=== PATIENT | male | born 1940 | race Caucasian/White ===

== ENCOUNTER 2016-10-03 16:54 | Emergency (ER) | payer MEDICARE, BC ==
[~2016-10-03] VITALS: Ht 167.6 cm; Wt 59.4 kg
[2016-10-03 16:55] VITALS: BP 148/86
[2016-10-03] MEDS ORDERED: TETANUS AND DIPHTHERIA TOX/PF 0.5 ML VIAL. VAX IM ONE (18:00)
[2016-10-03] MEDS ORDERED: LIDOCAINE 2% 20 ML VIAL. IJ ONE (18:30)
[2016-10-03] MEDS ORDERED: DIPHTH,PERTUSS(ACELL),TET TOX 0.5 ML DISP.SYRIN. VAX IM ONE (18:45)
[2016-10-03] MEDS ORDERED: LIDOCAINE/EPI/TETRACAINE TOPICAL GEL 3 ML. TP ONE (18:45)
[2016-10-03] MEDS ORDERED: CEPH-264 PO (19:52)
[2016-10-03] MEDS ORDERED: ACETAMINOPHEN 325 MG TABLET PO ONE (20:00)
[2016-10-03] MEDS ORDERED: CEPHALEXIN 500 MG CAPSULE PO ONE (20:00)
--- NOTE | 2016-10-03 20:06 | ED.ADGEN ---
Past History Past Medical History: No Pertinent History Past Surgical History: No Surgical History Alcohol Use: None Drug Use: None Adult General HPI HPI Patient is a 76-year-old man, who presents the emergency department with a complaint of hand pain and laceration. Patient states that he was moving equipment in his basement, when he caught his hand on the edge of a table and possibly part of a jigsaw. This occurred approximately an hour prior to arrival in the emergency department. Patient had significant bleeding, and place pressure on the wound immediately. Is not taking any medications prior to come to the ED. Denies any other injuries. His tetanus is not up-to-date. He does not take any anticoagulants. Review of Systems Review of Systems Constitutional: Denies fever or chills [] Eyes: Denies change in visual acuity, redness, or eye pain [] HENT: Denies nasal congestion or sore throat [] Respiratory: Denies cough or shortness of breath [] Cardiovascular: No additional information not addressed in HPI [] GI: Denies abdominal pain, nausea, vomiting, bloody stools or diarrhea [] : Denies dysuria or hematuria [] Musculoskeletal: Denies back pain or joint pain, pain in the left hand with laceration. Integument: Denies rash or skin lesions [] Current Medications Current Medications Current Medications Medications (Trade) Dose Ordered Sig/Zoie Start Time Stop Time Status Last Admin Dose Admin Acetaminophen (Tylenol) 650 mg 1X ONCE 10/03/16 20:00 10/03/16 20:01 Cephalexin HCl (Keflex) 500 mg 1X ONCE 10/03/16 20:00 10/03/16 20:01 Diphtheria/ Tetanus/Acell Pertussis (Boostrix) 0.5 ml ONCE ONCE 10/03/16 18:45 10/03/16 18:46 DC 10/03/16 18:31 0.5 ML Lidocaine HCl 20 ml 1X ONCE 10/03/16 18:30 10/03/16 18:31 DC 10/03/16 18:30 20 ML Lidocaine/ Epinephrine (Let Topical) 3 ml 1X ONCE 10/03/16 18:45 10/03/16 18:46 DC 10/03/16 18:39 3 ML Tetanus/ Diphtheria Toxoids Adsorbed (Tenivac Vial) 0.5 ml ONCE ONCE 10/03/16 18:00 10/03/16 18:13 DC Allergies Allergies Allergies Coded Allergies Type Severity Reaction Last Updated Verified No Known Drug Allergies 10/03/16 No Physical Exam Physical Exam Constitutional: Well developed, well nourished, no acute distress, non-toxic appearance. [] HENT: Normocephalic, atraumatic, bilateral external ears normal, oropharynx moist, no oral exudates, nose normal. [] Eyes: PERRLA, EOMI, conjunctiva normal, no discharge. [] Cardiovascular:Heart rate regular rhythm, no murmur, S1, S2, rubs or gallops. [] Lungs & Thorax: Bilateral breath sounds clear to auscultation, no wheezing, rhonchi, rales. No chest or crepitus or tenderness. [] Abdomen: Bowel sounds normal, soft, no tenderness, no masses, no pulsatile masses. [] Skin: Warm, dry, no erythema, no rash. [] Extremities: 4 cm slightly gaping laceration to the subcutaneous tissue between the second and third digit and across the dorsum of the left hand. Cardinal motions are intact, there is no extension beyond the superficial, fascia is intact. No cyanosis, no clubbing, ROM intact, no edema. [] Neurologic: Alert and oriented X 3, normal motor function, normal sensory function, no focal deficits noted. [] Psychologic: Affect normal, judgement normal, mood normal. [] Current Patient Data Vital Signs Vital Signs Date Time Temp Pulse Resp B/P (MAP) Pulse Ox O2 Delivery O2 Flow Rate FiO2 10/03/16 16:55 97.8 110 20 96 Room Air EKG EKG Not indicated. [] Radiology/Procedures Radiology/Procedures Hand x-ray: Left: Three-view: No bony abnormalities identified, small area of soft tissue swelling between the second and third digit on the dorsal aspect of the left hand, no foreign bodies or other abnormalities identified. As interpreted by me.] Course & Med Decision Making Course & Med Decision Making Pertinent Labs and Imaging studies reviewed. (See chart for details) Copious irrigation of the wound, superficial, with no involvement of the underlying fascia, with cardinal motions intact. A total of 11 simple sutures were applied using 5-0 Vicryl with hemostasis and good approximation established. Steri-Strips applied, bulky dressing applied, patient given clear and detailed return instructions. Tetanus was updated, patient also received several days worth of oral antibiotics due to the dirty condition of the wound upon arrival in the site of injury. Patient discharged home in stable condition with his son to follow-up in 7-10 days in the emergency department, and return immediately if any signs of infection develop. Final Impression Final Impression Laceration to the dorsal aspect left hand [] Problems: Dragon Disclaimer Dragon Disclaimer This electronic medical record was generated, in whole or in part, using a voice recognition dictation system. Laceration Repair Lac Repair Indication: 4 cm superficial laceration to the dorsal aspect left hand between digits 2 and 3. Procedure: The patient was placed in the appropriate position and anesthesia around the was applied using LET gel. The area was then copiously irrigated with sterile saline under pressure additionally cleaned with sterile . The laceration was a total of 4 mL's of 2% lidocaine was then injected with good anesthetic effect. Wound edges were approximated, and a total of 11 simple sutures using 5-0 Vicryl placed with hemostasis and good wound closure established. The wound area was then dressed with Steri-Strips and bulky dressing with sterile gauze. Total repaired wound length: 4 cm Other Items: [None The patient tolerated the procedure well Complications: [None]. Departure Disposition: 01 HOME, SELF-CARE Condition: IMPROVED BREANN MONAHAN DO October 03, 2016 20:06
--- NOTE | 2016-10-04 08:36 | RAD ---
Indication: Laceration. Technique: 3 views of the left hand are submitted for review. No comparison is available. Findings: There is no fracture or dislocation. There is no radiopaque foreign body. There are mild degenerative changes. Impression: Negative for fracture. Negative for radiopaque foreign body.
== END 2016-10-03 20:00 | disposition home or self-care (01) ==
LOC: ER 16:54
DX: S61.412A Laceration without foreign body of left hand, initial encounter (principal); W23.0XXA Caught, crushed, jammed, or pinched between moving objects, initial encounter; Y93.89 Activity, other specified; Y99.8 Other external cause status; Y92.89 Other specified places as the place of occurrence of the external cause
CPT/HCPCS: 12001; 73130; 90471; 90715; 99284-25; J2001

== ENCOUNTER 2021-08-15 13:49 | Emergency (ER) | payer BC, MEDICARE ==
[~2021-08-15] VITALS: Ht 167.6 cm; Wt 66.9 kg
[~2021-08-15 13:49] MED LIST: CEPH-264 PO
[2021-08-15] MEDS ORDERED: IOHEXOL 350 MG/ML 100 ML VIAL. ONE (14:01)
--- NOTE | 2021-08-15 14:14 | RAD ---
CT STROKE HEAD W/O History: Right arm weakness, numbness. Rule out stroke. Comparison: None. Technique: Noncontrast CT imaging was performed of the head. Findings: No intracranial hemorrhage. No mass effect. No hydrocephalus. No evidence of acute territorial infar ction. Moderate hypodensity the periventricular and deep white matter consistent with chronic microva scular ischemic changes. Imaged orbits are unremarkable. Imaged paranasal sinuses and mastoid air cells are clear. The scalp a nd calvarium are unremarkable. Impression: 1. No acute intracranial abnormality. Findings discussed with ALEJANDRO TIDWELL DO at 08/15/2021 203 PM. FOR INTERNAL CODING PURPOSES RESULT CODE: (C) ----- Exposure: One or more of the following individualized dose reduction techniques were utilized for thi s examination: 1. Automated exposure control 2. Adjustment of the mA and/or kV according to patient size 3. Use of iterative reconstruction technique. Electronically signed by: Uriel Armendariz MD (08/15/2021 2:11 PM) [id number]
[2021-08-15] MEDS ORDERED: ASPIRIN ENTERIC COATED 325 MG TABLET.DR. PO ONE (14:15)
[2021-08-15 14:22] LABS: BASO # 0.1 x10^3/uL (0.0-0.2); BASO % 2 % (0-3); EOS # 0.5 x10^3/uL (0.0-0.7); EOS % 5 % (0-3); HEMATOCRIT 46.7 % (39.0-53.0); HEMOGLOBIN 15.6 g/dL (13.0-17.5); LYMPH # 3.2 x10^3/uL (1.0-4.8); LYMPH % 33 % (24-48); MEAN CORPUSCULAR HEMOGLOBIN 30 pg (25-35); MEAN CORPUSCULAR HGB CONC 33 g/dL (31-37); MEAN CORPUSCULAR VOLUME 91 fL (79-100); MONO # 1.2 x10^3/uL (0.0-1.1); MONO % 13 % (0-9); NEUT # 4.5 x10^3uL (1.8-7.7); NEUT % 47 % (31-73); PLATELET COUNT 232 x10^3/uL (140-400); RED BLOOD COUNT 5.13 x10^6/uL (4.30-5.70); RED CELL DISTRIBUTION WIDTH 14.2 % (11.5-14.5); WHITE BLOOD COUNT 9.6 x10^3/uL (4.0-11.0)
--- NOTE | 2021-08-15 14:22 | PHYS DOC ---
Past History Past Medical History: No Pertinent History Past Surgical History: No Surgical History Smoking: Quit Greater Than 1 Year Alcohol Use: None Drug Use: None General Adult EDM: Chief Complaint: NEURO SYMPTOMS/DEFICITS HPI: HPI: Patient is a 81 yo male that presented to the ED for concerns of weakness of the right arm and leg that started around 1315 while sitting in the recliner. He promptly called EMS and he slid out of the chair on to the floor where EMS found him on arrival. Denies head trauma or LOC. He lives at home alone and hasn't seen a physician in 45 years. He stopped smoking last year. Doesn't take any medications. Reports the shaking of this right side started sometime during the ambulance ride. Reports that he's cold all of the time and keeps his thermostat at home at 80%. Reports some SOB. Denies chest pain, nausea, vomiting, fever, or changes in vision. Denies alcohol and recreational drug use. EMS activated CODE STROKE prior to arrival. Denies known sick contacts. Review of Systems: Review of Systems: Constitutional: Denies fever or chills HENT: Denies nasal congestion or sore throat Respiratory: Denies cough; reports shortness of breath Cardiovascular: Denies chest pain or palpitations GI: Denies abdominal pain, nausea, or vomiting : Denies dysuria or hematuria Musculoskeletal: Denies back pain or joint pain Integument: Denies rash or skin lesions Neurologic: Denies headache; reports right arm and leg weakness and numbness; reports right arm and leg contractions Complete systems were reviewed and found to be within normal limits, except as documented in this note. Current Medications: Current Meds: Current Medications Medications (Trade) Dose Ordered Sig/Zoie Start Time Stop Time Status Last Admin Dose Admin Aspirin (Aspirin Enteric Coated) 325 mg 1X ONCE 08/15/21 14:15 08/15/21 14:16 DC Iohexol (Omnipaque 350 Mg/ml) 100 ml STK-MED ONCE 08/15/21 14:01 08/15/21 14:01 DC Allergies: Allergies: Allergies Coded Allergies Type Severity Reaction Last Updated Verified No Known Drug Allergies 10/03/16 No Physical Exam: PE: Constitutional: Well developed, well nourished, no acute distress, non-toxic appearance HENT: Normocephalic, atraumatic Eyes: PERRL, EOMI, conjunctiva normal Neck: Normal range of motion, supple Lungs & Thorax: No respiratory distress, diffuse expiratory wheezes Abdomen: Soft, no tenderness Skin: Warm, dry, no erythema, no rash Back: No tenderness, no CVA tenderness Extremities: No edema, pulses equal bilaterally Neurologic: Alert and oriented X 3, right arm weakness 4/5 strength, right leg weakness 3/5 strength, decreased sensation on RUE and RLE compared to left side, right arm and leg focal seizure like activity noted Psychologic: Affect normal, judgment normal Current Patient Data: Labs: Laboratory Tests Test 08/15/21 14:01 Glucose (Fingerstick) 135 mg/dL (70-99) H EKG: EKG: @1418 Sinus tachycardia at 108bpm, NO ST elevation, QRS 76ms, QT/QTc 264/357ms Radiology/Procedures: Radiology/Procedures: PROCEDURE: CT CODE STROKE HEAD WO CT STROKE HEAD W/O History: Right arm weakness, numbness. Rule out stroke. Comparison: None. Technique: Noncontrast CT imaging was performed of the head. Findings: No intracranial hemorrhage. No mass effect. No hydrocephalus. No evidence of acute territorial infarction. Moderate hypodensity the periventricular and deep white matter consistent with chronic microvascular ischemic changes. Imaged orbits are unremarkable. Imaged paranasal sinuses and mastoid air cells are clear. The scalp and calvarium are unremarkable. Impression: 1. No acute intracranial abnormality. Findings discussed with ALEJANDRO TIDWELL DO at 08/15/2021 203 PM. FOR INTERNAL CODING PURPOSES RESULT CODE: (C) Exposure: One or more of the following individualized dose reduction techniques were utilized for this examination: 1. Automated exposure control 2. Adjustment of the mA and/or kV according to patient size 3. Use of iterative reconstruction technique. Electronically signed by: Uriel Armendariz MD (08/15/2021 2:11 PM) [id number] PROCEDURE: PORTABLE CHEST 1V XR CHEST 1V INDICATION: weakness COMPARISON STUDY: None. FINDINGS: Lungs: Normal lung volume. No pulmonary mass or consolidation. The tracheobronchial tree and hilar structures are normal. Pleura: No pleural effusion or pneumothorax. Heart and Mediastinum: The cardiomediastinal silhouette is normal. Tortuous athe rosclerotic aorta. IMPRESSION: No acute cardiopulmonary process. Electronically signed by: Anthony Rodriguez MD (08/15/2021 3:14 PM) [id number] PROCEDURE: CT ANGIOGRAPHY HEAD AND NECK CTA HEAD AND NECK W/WO CONTRAST History: Right arm weakness. Code stroke. Technique: After bolus of intravenous contrast, volumetric CT data acquisition was acquired of the head and neck. Multiplanar reconstruction images to include MIP and 3-D reconstruction images are submitted. Any determination of stenosis is based on NASCET criteria. Comparison: None Findings: Angiogram neck: Aortic arch: Normal caliber. Mild atherosclerotic calcification. 2 vessel morphology. Common carotid arteries: No stenosis, occlusion or dissection. Internal carotid arteries: No stenosis, occlusion or dissection. External carotid arteries: Patent Vertebral arteries: No stenosis, occlusion or dissection. Angiogram head: ICA: No stenosis, occlusion or aneurysm. MCA: No stenosis, occlusion or aneurysm. GERMAN: No stenosis, occlusion or aneurysm. EDGE PLUGGER: No stenosis, occlusion or aneurysm. Basilar artery: No stenosis, occlusion or aneurysm. Distal vertebral arteries: No stenosis, occlusion or aneurysm. Other: Imaged lung apices are unremarkable. Soft tissues appear normal. No pathologic osseous lesions. Multilevel degenerative changes in the spine. Right maxillary sinus opacification. Impression: 1. No large vessel occlusion. 2. No significant stenosis in the head and neck. 3. Right maxillary sinus disease. Findings discussed with emergency room staff on behalf of Dr. Tidwell who was involved in a procedure at 08/15/2021 4:15 PM. FOR INTERNAL CODING PURPOSES RESULT CODE: (C) Exposure: One or more of the following individualized dose reduction techniques were utilized for this examination: 1. Automated exposure control 2. Adjustment of the mA and/or kV according to patient size 3. Use of iterative reconstruction technique. Electronically signed by: Uriel Armendariz MD (08/15/2021 4:16 PM) [id number] Heart Score: C/O Chest Pain: N/A Course & Med Decision Making: Course & Med Decision Making Pertinent Labs and Imaging studies reviewed. (See chart for details) Elderly patient presents via EMS as a code stroke. Patient with right arm and leg weakness and numbness. Patient sent directly to CT imaging. CT head with out acute process. NIHSS obtained and 4. Patient subsequently started having progressive focal muscle contractions to arm and leg concerning for focal seizure-like activity. Ativan provided. Labs obtained and posted to chart. Lactic acid significantly elevated concerning that patient may have a seizure- like disorder. Cannot fully dissertation between seizure or stroke. A CT angio head and neck obtained. Prior to results discussed case with Dr. Herrera (neurologist) regarding administration of TPA. TPA had been ordered. Dr. Herrera recommended awaiting CTA head/neck report. CTA head/neck without acute large vessel occulsion. Dr. Herrera came to ED and evaluated patient. Recommendation to start TPA. TPA was administered prior to 4 hours reported last know well. Dr. Herrera recommended admission to ICU. Discussed case with Dr. Sky (hospitalist) and Tara RN (malt house kiln operator). Unfortunately no ICU bed capability. Patient therefore requiring transfer to higher level facility for admission for further evaluation and treatment. Discussed with Dr. Cruz (hospitalist) at [facility] who is in agreement with ICU admission. Discussed findings and plan with patient, who acknowledges understanding and agreement. [place] Disclaimer: [place] Disclaimer: This electronic medical record was generated, in whole or in part, using a voice recognition dictation system. Departure Departure: Impression: Primary Impression: Right sided weakness Additional Impressions: Focal seizures Right sided numbness Lactic acidosis Disposition: 02 SHORT TERM HOSPITAL ([facility]- Dr. Cruz (hospitalist) accepting) Condition: GUARDED Referrals: PCP,UNKNOWN (PCP) NIHSS - ED NIH Stroke Scale: NIH Stroke Scale Response (Comments) Value Level of Consciousness: 0 Alert/Responsive 0 LOC Questions: 0 Answers both correctly 0 LOC Commands: 0 Performs both tasks 0 Best Gaze: 0 Normal 0 Visual: 0 No visual loss 0 Facial Palsy: 0 Normal, symmetrical 0 Motor - Left Arm 0 No drift 0 Motor - Right Arm 1 Drifts but can hold 1 Motor - Left Leg 0 No drift 0 Motor: Right Leg 2 Some effort 2 Limb Ataxia: 0 Absent 0 Sensory: 1 Mid to moderate loss 1 Best Language: 0 Normal 0 Dysathria: 0 Normal 0 Extinction and Inattention: 0 Normal 0 Total 4 Critical Care Time Critical care time was 30 minutes which includes time at bedside, spent in discussion of patient's care with specialists and/or family members, with interpretation of laboratory and/or radiological studies and is exclusive of procedures. ALEJANDRO TIDWELL DO Aug 15, 2021 14:22
--- NOTE | 2021-08-15 14:25 | EKG ---
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
[2021-08-15 14:33] LABS: CALCIUM 8.9 mg/dL (8.5-10.1); GFR 71.4; POTASSIUM 3.9 mmol/L (3.5-5.1)
[2021-08-15] MEDS ORDERED: ALTEPLASE IV ONE (14:45)
[2021-08-15] MEDS ORDERED: IV NORMAL SALINE 100ML 100 ML IV ONE (14:45)
[2021-08-15] MEDS ORDERED: ALTEPLASE 6 MG IV ONE (14:45)
[2021-08-15 14:52] LABS: ALBUMIN 3.7 g/dL (3.4-5.0); ALBUMIN/GLOBULIN RATIO 1.1 (1.0-1.7); TOTAL BILIRUBIN 0.5 mg/dL (0.2-1.0)
[2021-08-15] MEDS ORDERED: IOHEXOL 350 MG/ML 100 ML VIAL. IV ONE (15:15)
--- NOTE | 2021-08-15 15:17 | RAD ---
XR CHEST 1V INDICATION: weakness COMPARISON STUDY: None. FINDINGS: Lungs: Normal lung volume. No pulmonary mass or consolidation. The tracheobronchial tree and hilar st ructures are normal. Pleura: No pleural effusion or pneumothorax. Heart and Mediastinum: The cardiomediastinal silhouette is normal. Tortuous atherosclerotic aorta. IMPRESSION: No acute cardiopulmonary process. Electronically signed by: Anthony Rodriguez MD (08/15/2021 3:14 PM) [id number]
[2021-08-15 16:13] LABS: CLARITY,URINE CLEAR
[2021-08-15 16:14] LABS: BACTERIA,URINE 0 /HPF (0-FEW); COLOR,URINE YELLOW; GLUCOSE,URINE NEG (NEG); NITRITE,URINE NEG (NEG); RBC,URINE OCC /HPF (0-2); UROBILINOGEN,URINE 0.2 mg/dL (0.2 mg/dL); WBC,URINE 0 /HPF (0-4)
--- NOTE | 2021-08-15 16:19 | RAD ---
CTA HEAD AND NECK W/WO CONTRAST History: Right arm weakness. Code stroke. Technique: After bolus of intravenous contrast, volumetric CT data acquisition was acquired of the he ad and neck. Multiplanar reconstruction images to include MIP and 3-D reconstruction images are submi tted. Any determination of stenosis is based on NASCET criteria. Comparison: None Findings: Angiogram neck: Aortic arch: Normal caliber. Mild atherosclerotic calcification. 2 vessel morphology. Common carotid arteries: No stenosis, occlusion or dissection. Internal carotid arteries: No stenosis, occlusion or dissection. External carotid arteries: Patent Vertebral arteries: No stenosis, occlusion or dissection. Angiogram head: ICA: No stenosis, occlusion or aneurysm. MCA: No stenosis, occlusion or aneurysm. GERMAN: No stenosis, occlusion or aneurysm. AUTOMOTIVE INSTRUCTOR: No stenosis, occlusion or aneurysm. Basilar artery: No stenosis, occlusion or aneurysm. Distal vertebral arteries: No stenosis, occlusion or aneurysm. Other: Imaged lung apices are unremarkable. Soft tissues appear normal. No pathologic osseous lesions. Multilevel degenerative changes in the spine. Right maxillary sinus opacification. Impression: 1. No large vessel occlusion. 2. No significant stenosis in the head and neck. 3. Right maxillary sinus disease. Findings discussed with emergency room staff on behalf of Dr. Wei who was involved in a procedure a t 08/15/2021 4:15 PM. FOR INTERNAL CODING PURPOSES RESULT CODE: (C) Exposure: One or more of the following individualized dose reduction techniques were utilized for thi s examination: 1. Automated exposure control 2. Adjustment of the mA and/or kV according to patient size 3. Use of iterative reconstruction technique. Electronically signed by: Uriel Armendariz MD (08/15/2021 4:16 PM) [id number]
[2021-08-15 18:50] VITALS: BP 137/80
--- NOTE | 2021-08-15 19:40 | EKG ---
[address] [address] Test Date: 2021-08-15 Test Time: 18:57:25 Pat Name: AL LONGO Department: Room: Gender: M Ent Physician: : [id number] Requested By: ALEJANDRO TIDWELL Order Number: [id number] Reading MD: Measurements Intervals [place] Rate: 105 P: 72 MN: 116 QRS: 26 QRSD: 74 T: 62 QT: 320 QTc: 427 Interpretive Statements SINUS TACHYCARDIA ATRIAL PREMATURE COMPLEX(ES) T ABNORMALITY IN ANTEROLATERAL LEADS ABNORMAL ECG RI6.02 No previous ECG available for comparison
== END 2021-08-15 19:00 | disposition short-term general hospital (02) ==
LOC: ER 13:52
DX: E87.2 Acidosis (principal); G40.89 Other seizures; R53.1 Weakness; R20.0 Anesthesia of skin; Z20.822 Contact with and (suspected) exposure to COVID-19; Z87.891 Personal history of nicotine dependence; W07.XXXA Fall from chair, initial encounter; Y93.89 Activity, other specified; Y92.89 Other specified places as the place of occurrence of the external cause; Y99.8 Other external cause status
CPT/HCPCS: 36415; 37195; 70450; 70496; 70498; 71045; 80053; 81001; 82553; 82947; 83605; 83735; 83880; 84484; 85025; 85610; 85730; 93005; 96360; 96361; 96374; 99291; C9803; J2060; J2997; Q9967; U0003